=== PATIENT | male | born 1980 | race Caucasian/White ===

== ENCOUNTER 2017-05-01 16:27 | Emergency (ER) | payer SELFPAY ==
[~2017-05-01] VITALS: Ht 170.2 cm; Wt 70.0 kg
[2017-05-01 16:31] VITALS: BP 142/81; PULSE 87; RESP 16; TEMP 98.7; O2SAT 98
[2017-05-01 17:50] LABS: ALBUMIN 4.6 GM/DL (3.4-5.0); AMORPHOUS SEDIMENT, URINE OCC; AST (GOT) 17 U/L (15-37); BICARBONATE 28.2 MEQ/L (21.0-32.0); BILIRUBIN, URINE NEG (NEG); BLOOD UREA NITROGEN 14 MG/DL (7-18); BLOOD, URINE NEG (NEG); CALCIUM 9.7 MG/DL (8.5-10.1); CHLORIDE 104 MEQ/L (98-107); CREATININE 0.94 MG/DL (0.60-1.30); GLOMERULAR FILTRATION RATE 90 ML/MIN (>89); GLUCOSE,RANDOM 88 MG/DL (74-106); GLUCOSE,URINE NEG (NEG); KETONE, URINE 80 mg/dL (NEG); LIPASE 98 U/L (73-393); MUCUS URINE FEW /lpf (OCC); NITRITE,URINE NEG (NEG); SODIUM (NA) 140 MEQ/L (136-145); URINE COLOR YELLOW (YELLW/STRAW); URINE LEUKOCYTE ESTERASE NEG (NEG)
[2017-05-01 17:52] LABS: ALT (GPT) 35 U/L (12-78)
[2017-05-01 17:53] LABS: ALKALINE PHOSPHATASE 77 U/L (45-117); TOTAL BILIRUBIN ADULT 0.5 MG/DL (0.2-1.0); TOTAL PROTEIN 8.6 GM/DL (6.4-8.2)
[2017-05-01 18:04] LABS: AUTOMATED NEUTROPHIL # 4.8 TH/MM3 (1.8-7.7); BASOPHIL % 0.4 % (0.0-2.0); EOSINOPHIL % 0.6 % (0.0-4.0); HEMATOCRIT 44.1 % (39.0-51.0); HEMOGLOBIN 15.1 GM/DL (13.0-17.0); LYMPH % 29.8 % (9.0-44.0); LYMPHOCYTE # 2.2 TH/MM3 (1.0-4.8); MEAN CELL VOLUME 92.8 FL (80.0-100.0); MEAN CORPUSCULAR HEMOGLOBIN 31.8 PG (27.0-34.0); MEAN CORPUSCULAR HGB CONC 34.2 % (32.0-36.0); MEAN PLATELET VOLUME 7.3 FL (7.0-11.0); MONO % 5.6 % (0.0-8.0); MONOCYTE # 0.4 TH/MM3 (0-0.9); NEUT % 63.6 % (16.0-70.0); PLATELET COUNT 283 TH/MM3 (150-450); RED BLOOD COUNT 4.76 MIL/MM3 (4.50-5.90); RED CELL DISTRIBUTION WIDTH 12.6 % (11.6-17.2); WHITE BLOOD COUNT 7.5 TH/MM3 (4.0-11.0)
[2017-05-01] MEDS ORDERED: LIDOCAINE VISCOUS 2% SOLN 15 ML UDC PO ONE (18:15)
[2017-05-01] MEDS ORDERED: ALUMINUM/MAGNESIUM/SIMETH 30 ML CUP PO ONE (18:15)
[2017-05-01] MEDS ORDERED: SODIUM CHLOR 0.9% 1000 ML INJ 1,000 ML IV ONE (18:15)
[2017-05-01] MEDS ORDERED: GAVISUS2 PO (18:27)
--- NOTE | 2017-05-01 18:27 | PD ---
HPI Chief Complaint: Abdominal Pain Time Seen by Provider: 17:49 Travel History International Travel<30 days: No Contact w/Intl Traveler<30days: No Traveled to known affect area: No History of Present Illness HPI 36-year-old male complains of epigastric abdominal pain which seems to come about once or twice a year. For the past 2 days of pain in the left lower quadrant. The pain comes and goes. It's worse when he lays in the left side. As better when he lays on his back on the right side. He's had no vomiting fever or diarrhea or constipation. No blood in the stool. He reports decreased appetite for the past week eating about once a day however he has been able to drink fluids normally. Onset gradual. Severity [id number]. He feels no mass or bulge in the scrotum/testicles. [facility] Social History Tobacco Use: No Allergies-Medications (Allergen,Severity, Reaction): Coded Allergies: No Known Allergies (Unverified , 05/01/17) Review of Systems Except as stated in HPI: all other systems reviewed are Neg General / Constitutional: No: Fever Cardiovascular: No: Chest Pain or Discomfort Gastrointestinal: Positive: Abdominal Pain, No: Nausea, Vomiting, Diarrhea Physical Exam Narrative GENERAL: 36-year-old male no acute distress well-nourished well-developed SKIN: Warm and dry. HEAD: Atraumatic. Normocephalic. EYES: Pupils equal and round. No scleral icterus. No injection or drainage. ENT: No nasal bleeding or discharge. Mucous membranes pink and moist. CARDIOVASCULAR: Regular rate and rhythm. RESPIRATORY: No accessory muscle use. Clear to auscultation. Breath sounds equal bilaterally. GASTROINTESTINAL: Soft. No focus of tenderness on the left side. No defect in the abdominal wall. Negative Sethi sign GENITOURINARY: There is no hernia on scrotal exam. There is no testicular mass. External genitalia normal MUSCULOSKELETAL: Extremities without clubbing, cyanosis, or edema. No obvious deformities. NEUROLOGICAL: Awake and alert. No obvious cranial nerve deficits. Motor grossly within normal limits. Five out of 5 muscle strength in the arms and legs. Normal speech. PSYCHIATRIC: Appropriate mood and affect; insight and judgment normal. Data Data Last Documented VS Vital Signs Date Time Temp Pulse Resp B/P (MAP) Pulse Ox O2 Delivery O2 Flow Rate FiO2 05/01/17 16:31 98.7 87 16 142/81 (101) 98 Orders Orders Complete Blood Count With Diff (05/01/17 16:48) Comprehensive Metabolic Panel (05/01/17 16:48) Urinalysis - C+S If Indicated (05/01/17 16:48) Lipase (05/01/17 16:48) Sodium Chlor 0.9% 1000 Ml Inj (Ns 1000 M (05/01/17 18:15) Al-Mag Hy-Si 40-40-4 Mg/Ml Liq (Mag-Al P (05/01/17 18:15) Lidocaine 2% Viscous (Xylocaine 2% Visco (05/01/17 18:15) Ed Discharge Order (05/01/17 18:22) Labs Laboratory Tests Test 05/01/17 16:56 White Blood Count 7.5 TH/MM3 Red Blood Count 4.76 MIL/MM3 Hemoglobin 15.1 GM/DL Hematocrit 44.1 % Mean Corpuscular Volume 92.8 FL Mean Corpuscular Hemoglobin 31.8 PG Mean Corpuscular Hemoglobin Concent 34.2 % Red Cell Distribution Width 12.6 % Platelet Count 283 TH/MM3 Mean Platelet Volume 7.3 FL Neutrophils (%) (Auto) 63.6 % Lymphocytes (%) (Auto) 29.8 % Monocytes (%) (Auto) 5.6 % Eosinophils (%) (Auto) 0.6 % Basophils (%) (Auto) 0.4 % Neutrophils # (Auto) 4.8 TH/MM3 Lymphocytes # (Auto) 2.2 TH/MM3 Monocytes # (Auto) 0.4 TH/MM3 Eosinophils # (Auto) 0.0 TH/MM3 Basophils # (Auto) 0.0 TH/MM3 CBC Comment DIFF FINAL Differential Comment Urine Color YELLOW Urine Turbidity HAZY Urine pH 7.0 Urine Specific Klemme 1.026 Urine Protein TRACE mg/dL Urine Glucose (UA) NEG mg/dL Urine Ketones 80 mg/dL Urine Occult Blood NEG Urine Nitrite NEG Urine Bilirubin NEG Urine Urobilinogen LESS THAN 2.0 MG/DL Urine Leukocyte Esterase NEG Urine Amorphous Sediment OCC Urine Mucus FEW /lpf Microscopic Urinalysis Comment CULT NOT INDICATED Blood Urea Nitrogen 14 MG/DL Creatinine 0.94 MG/DL Random Glucose 88 MG/DL Total Protein 8.6 GM/DL Albumin 4.6 GM/DL Calcium Level 9.7 MG/DL Alkaline Phosphatase 77 U/L Aspartate Amino Transf (AST/SGOT) 17 U/L Alanine Aminotransferase (ALT/SGPT) 35 U/L Total Bilirubin 0.5 MG/DL Sodium Level 140 MEQ/L Potassium Level 3.5 MEQ/L Chloride Level 104 MEQ/L Carbon Dioxide Level 28.2 MEQ/L Anion Gap 8 MEQ/L Estimat Glomerular Filtration Rate 90 ML/MIN Lipase 98 U/L MDM Medical Decision Making Medical Screen Exam Complete: Yes Emergency Medical Condition: Yes Differential Diagnosis Constipation, Gastritis, Acute Cholecystitis, Biliary Colic, Pancreatitis, MASCORRO , Hepatitis, Bowel Obstruction, Cystitis, Mesenteric Ischemia, AAA, Appendicitis , Renal Stone/Hydronephrosis, GERD, perforated viscous Narrative Course CBC & BMP Diagram 05/01/17 16:56 Total Protein 8.6 H, Albumin 4.6, Calcium Level 9.7, Alkaline Phosphatase 77, Aspartate Amino Transf (AST/SGOT) 17, Alanine Aminotransferase (ALT/SGPT) 35, Total Bilirubin 0.5 Lipase is normal There is minimal ketonuria Aggressive oral hydration GI cocktail The exam is benign patient did mention some concern for possibly having cancer which is really quite unlikely and 36-year-old male with no similar prior symptoms and no history of cancer in a duration of pain of only 2 days. The patient was reassured. Return precautions discussed. He is heading home to the [facility] and about a month and preferred to follow up there if necessary. Diagnosis Primary Impression: Abdominal pain Qualified Codes: R10.13 - Epigastric pain Additional Impression: Gastritis Qualified Codes: K29.70 - Gastritis, unspecified, without bleeding Med/Other Pt SpecificInfo: Prescription(s) given Scripts Aluminum Hydroxide-Mag Carb Liq (Gaviscon Extra Strength R Liq) 508-475 Mg/10 Ml Susp 10-20 ML PO QID Y for HEARTBURN, #14 ML 0 Refills Maximum 80 mL/24 hrs. Prov: Herbie Ybarra MD 05/01/17 Disposition: 01 DISCHARGE HOME Condition: Stable Herbie Ybarra MD May 01, 2017 18:27
== END 2017-05-01 18:52 | disposition home or self-care (01) ==
LOC: NEPD 16:27
DX: K29.70 Gastritis, unspecified, without bleeding (principal)
CPT/HCPCS: 80053; 81001; 83690; 85025; 99283

== ENCOUNTER 2017-05-05 12:03 | Emergency (ER) | payer SELFPAY ==
[~2017-05-05] VITALS: Ht 167.6 cm; Wt 72.7 kg
[~2017-05-05 12:03] MED LIST: GAVISUS2 PO
[2017-05-05 12:24] VITALS: BP 125/84; PULSE 96; RESP 16; TEMP 98.4; O2SAT 96
--- NOTE | 2017-05-05 12:25 | PD ---
HPI Chief Complaint: General Weakness Time Seen by Provider: 12:19 Travel History International Travel<30 days: No Contact w/Intl Traveler<30days: No Traveled to known affect area: No History of Present Illness HPI This is a 36-year-old male who presents to the emergency department concerned that he has cancer. He says for 2 weeks he's felt very tired and hasn't wanted to eat anything. He says when he does he he feels better. He denies any abdominal pain, fevers, chills, cough, rhinorrhea or other symptoms. He asked if we can do a test for cancer in the emergency department. He was just seen 4 days ago and had blood work performed all of which was reassuring. He is from the [facility] and plans to go back there and 2 months. He has no insurance here. History Past Medical Histgory Medical History: Denies Significant Hx Social History Alcohol Use: No Tobacco Use: No Allergies-Medications (Allergen,Severity, Reaction): Coded Allergies: No Known Allergies (Unverified , 05/01/17) Reported Meds & Prescriptions Reported Meds & Active Scripts Active Gaviscon Extra Strength R Liq (Aluminum Hydroxide-Mag Carb Liq) 508-475 Mg/10 Ml Susp 10-20 Ml PO QID PRN Maximum 80 mL/24 hrs. Review of Systems General / Constitutional: No: Fever, Chills Cardiovascular: No: Chest Pain or Discomfort Respiratory: No: Shortness of Breath Physical Exam Narrative GENERAL: Well-appearing, no acute distress, nontoxic SKIN: Warm and dry. HEAD: Atraumatic. Normocephalic. ENT: No nasal bleeding or discharge. Moist mucous membranes MUSCULOSKELETAL: No obvious deformities. Moving all extremities NEUROLOGICAL: Awake and alert. No obvious cranial nerve deficits. Motor grossly within normal limits. Normal speech. PSYCHIATRIC: Appropriate mood and affect; insight and judgment normal. MDM Medical Screen Exam Complete: Yes Emergency Medical Condition: No Narrative Course This is a 36-year-old male who is from the [facility] presents to the emergency department with decreased appetite and malaise. He was just seen in the emergency department several days ago and had blood work performed all of which is reassuring. He says he feels a little better than he did then. He has no complaints of abdominal pain. I don't think this is an acute emergency. He would benefit from outpatient primary care follow-up. He was given [facility] referral. I don't appreciate an emergency medical condition at this time. Primary Impression: Destiny Tom MD May 05, 2017 12:24
== END 2017-05-05 12:53 | disposition left against medical advice (07) ==
LOC: NEPD 12:03
DX: R53.1 Weakness (principal)
CPT/HCPCS: 99281